=== PATIENT | male | born 1960 | race Caucasian/White ===

== ENCOUNTER 2019-06-25 01:29 | Observation (INO) ==
[2019-06-25] MEDS ORDERED: Isovue-370 500 ML BOTTLE IVP ONE (01:43)
[2019-06-25] MEDS ORDERED: 0.9 % Sodium Chloride 1,000 ML IVC SCH (01:45)
[2019-06-25] MEDS ORDERED: 0.9 % Sodium Chloride 1,000 ML ONE (01:57)
[2019-06-25 02:23] LABS: Basophils % 0.3 %; Eosinophils # 0.5 K/mcL (0.0-0.6); Eosinophils % 5.2 %; Hematocrit 35.7 % (37.5-50.1); Immature Granulocytes % 0.3 % (0-4); Lymphocytes # 1.4 K/mcL (0.6-4.6); Lymphocytes % 14.5 %; Mean Corpuscular HGB Conc 33.6 g/dL (31.6-35.5); Mean Corpuscular Volume 95.2 fL (83.0-100.0); Mean Platelet Volume 9.8 fL (9.4-12.4); Monocytes # 0.6 K/mcL (0.0-1.3); Monocytes % 6.1 %; Neutrophils # 6.9 K/mcL (1.6-8.9); Platelet Count 258 K/mcL (140-400); Red Blood Count 3.75 M/mcL (4.19-5.50); Red Cell Distribution Width 13.7 % (11.5-14.5); Segmented Neutrophils % 73.6 %; White Blood Count 9.3 K/mcL (4.3-11.1)
[2019-06-25 02:43] LABS: Activated Partial Thrombo Time 26.3 Seconds (26.0-36.0); INR 1.2; Prothrombin Time 13.1 Seconds (9.4-12.1)
[2019-06-25 03:29] LABS: Alanine Aminotransferase 14 Units/L (7-52); Albumin 3.5 g/dL (3.5-5.7); Albumin/Globulin Ratio 1.5 (1.1-2.2); Alkaline Phosphatase 69 Units/L (34-104); Aspartate Amino Transferase 13 Units/L (13-39); BUN/Creatinine Ratio 22 (6-26); Bilirubin,Total 0.3 mg/dL (0.3-1.0); Blood Urea Nitrogen 16 mg/dL (8-23); Calcium 8.4 mg/dL (8.6-10.3); Carbon Dioxide 28 mEq/L (23-29); Chloride 108 mEq/L (98-107); Globulin 2.3 g/dL (2.4-3.5); Glucose 92 mg/dL (70-105); Osmolality,Calculated 295 (280-300); Potassium 4.1 mEq/L (3.5-5.1); Sodium 142 mEq/L (136-145); Total Protein 5.8 g/dL (6.4-8.9); eGFR For African Americans > 60 (> 60); eGFR For Non-African Americans > 60 (> 60)
[2019-06-25] MEDS ORDERED: Ondansetron 4 MG/2 ML VIAL IVP PRN (05:48)
[2019-06-25] MEDS ORDERED: *HR* OxyCODONE/APAP 10/325 TABLET PO PRN (05:48)
[2019-06-25] MEDS ORDERED: Naloxone 0.4 MG/ML INJ IVP PRN (05:48)
[2019-06-25] MEDS: 0.9 % Sodium Chloride 1,000 ML IVC SCH ×3 (06:19→20:00)
[2019-06-25 07:41] LABS: Hematocrit 32.9 % (37.5-50.1); Hemoglobin 11.3 g/dL (12.9-16.9)
[2019-06-25] MEDS: Lisinopril 20 MG TABLET PO SCH (09:45)
[2019-06-25 13:58] LABS: Hematocrit 32.5 % (37.5-50.1); Hemoglobin 10.9 g/dL (12.9-16.9)
[2019-06-25 19:20] LABS: Hematocrit 31.3 % (37.5-50.1); Hemoglobin 10.6 g/dL (12.9-16.9)
[2019-06-26 01:41] LABS: Hematocrit 31.4 % (37.5-50.1); Hemoglobin 10.7 g/dL (12.9-16.9)
[2019-06-26] MEDS: 0.9 % Sodium Chloride 1,000 ML IVC SCH (04:03)
[2019-06-26 10:17] VITALS: BP 145/82
[2019-06-26] MEDS: Lisinopril 20 MG TABLET PO SCH (10:18)
== END 2019-06-26 13:10 | disposition home or self-care (01) ==
LOC: INPPIK 01:29 → EMEROOPIK 01:29 → INPPIK 05:43
PROVIDERS: ADMIT Family Medicine; ATTEND Family Medicine